=== PATIENT | female | born 1970 | race Caucasian/White ===

== ENCOUNTER 2017-03-21 14:22 | Inpatient (IN) ==
[2017-03-21] MEDS ORDERED: ALBUTEROL 2.5 MG/3 ML NEB RESP TX PRN (15:50)
[2017-03-21] MEDS ORDERED: ALPRAZolam 0.5 MG TABLET PO PRN (18:43)
[2017-03-21] MEDS ORDERED: ACETAMINOPHEN 325 MG TABLET PO PRN (19:29)
[2017-03-21 19:56] LABS: Basophils % 0.3 % (0.0-0.8); Eosinophils # 0.4 10*3/uL (0.0-0.87); Hemoglobin 11.7 GM/DL (12.0-16.0); Immature Granulocytes % 0.6 %; Immature Granulocytes Absolute 0.07 #; Lymphocytes # 2.4 10*3/uL (1.4-4.0); Lymphocytes % 19.3 % (21.3-54.2); Mean Corpuscular HGB Conc 34.4 GM/DL (32-36); Mean Corpuscular Hemoglobin 31 PG (27-34); Mean Corpuscular Volume 88.5 FL (87-102); Mean Platelet Volume 9.4 FL (9.6-12.0); Monocytes # 0.9 10*3/uL (0.11-0.8); Monocytes % 7.6 % (1.7-12.7); Neutrophils # 8.5 10*3/uL (1.4-7.4); Neutrophils % 69.2 % (38.7-73.9); Platelet Count 252 T/CUMM (130-400); Red Blood Count 3.84 MC/CUMM (3.8-5.5); Red Cell Distribution Width 14.2 % (9.3-17.3); White Blood Count 12.3 T/CUMM (4-12)
[2017-03-21] MEDS ORDERED: AZITHROMYCIN INJ 500 MG in SODIUM CHLORIDE 0.9% 250 ML IV SCH (20:00)
[2017-03-21] MEDS ORDERED: AZTREONAM 2,000 MG in SYRINGE 1 EACH IV SCH (20:00)
[2017-03-21 20:16] LABS: Albumin 3.7 G/DL (3.4-5.0); Bilirubin,Total 0.5 MG/DL (0.2-1.0); Calcium 8.8 MG/DL (8.5-10.1); Osmolality,Calculated 279.5 MOS/KG (273-304); Potassium 4.5 MMOL/L (3.5-5.1); Total Protein 6.8 G/DL (6.4-8.3)
[2017-03-21] MEDS: guaiFENesin/DM ER 600-30 MG TABLET PO SCH (21:25)
[2017-03-21] MEDS: MEROPENEM 1,000 MG in SYRINGE 1 EACH IV SCH (23:01)
[2017-03-21] MEDS: ALBUTEROL/IPRATROPIUM 3 ML NEB RESP TX SCH (23:02)
[2017-03-22 05:50] LABS: Basophils % 0.4 % (0.0-0.8); Eosinophils # 0.5 10*3/uL (0.0-0.87); Eosinophils % 5.3 % (0.00-10.9); Hematocrit 31.1 VOL% (35.7-47.0); Hemoglobin 10.5 GM/DL (12.0-16.0); Immature Granulocytes % 0.5 %; Immature Granulocytes Absolute 0.05 #; Lymphocytes # 2.4 10*3/uL (1.4-4.0); Lymphocytes % 24.9 % (21.3-54.2); Mean Corpuscular HGB Conc 33.8 GM/DL (32-36); Mean Corpuscular Hemoglobin 30 PG (27-34); Mean Corpuscular Volume 89.4 FL (87-102); Mean Platelet Volume 9.6 FL (9.6-12.0); Monocytes # 0.9 10*3/uL (0.11-0.8); Monocytes % 9.7 % (1.7-12.7); Neutrophils # 5.7 10*3/uL (1.4-7.4); Neutrophils % 59.2 % (38.7-73.9); Platelet Count 212 T/CUMM (130-400); Red Blood Count 3.48 MC/CUMM (3.8-5.5); Red Cell Distribution Width 14.3 % (9.3-17.3); White Blood Count 9.6 T/CUMM (4-12)
[2017-03-22 06:18] LABS: Blood Urea Nitrogen 19 MG/DL (7-18); Calcium 8.3 MG/DL (8.5-10.1); Glucose 79 MG/DL (74-106); Magnesium 2.1 MG/DL (1.8-2.4); Osmolality,Calculated 279.4 MOS/KG (273-304); Potassium 4.2 MMOL/L (3.5-5.1); Sodium 140 MMOL/L (136-145); Troponin I Only < 0.015 NG/ML (0.00-0.045)
[2017-03-22] MEDS ORDERED: PANTOPRAZOLE 40 MG TABLET PO SCH (09:00)
[2017-03-22] MEDS: guaiFENesin/DM ER 600-30 MG TABLET PO SCH (10:10)
[2017-03-22] MEDS: MEROPENEM 1,000 MG in SYRINGE 1 EACH IV SCH (11:18)
[2017-03-22] MEDS: ALBUTEROL/IPRATROPIUM 3 ML NEB RESP TX SCH ×2 (13:54→13:58)
[2017-03-22 17:36] VITALS: BP 107/67
[2017-03-23 14:37] LABS: Procalcitonin, S 0.28 ng/mL (<=0.15)
[2017-03-23] MEDS ORDERED: AZITHROMYCIN 250 MG TABLET PO SCH (21:00)
== END 2017-03-22 16:55 | disposition home or self-care (01) | DRG 194 ==
LOC: N.2E 18:27
PROVIDERS: ADMIT Internal Medicine; ATTEND Internal Medicine

== ENCOUNTER 2018-03-19 16:49 | Inpatient (IN) ==
[2018-03-19] MEDS ORDERED: ZALEPLON 5 MG CAPSULE PO PRN (18:20)
[2018-03-19] MEDS ORDERED: ONDANSETRON 4 MG/2 ML VIAL IV PRN (18:20)
[2018-03-19] MEDS ORDERED: ALBUTEROL 2.5 MG/3 ML NEB RESP TX PRN (18:20)
[2018-03-19] MEDS ORDERED: DEXTROSE 50% 25 GM/50 ML VIAL IV PRN (18:49)
[2018-03-19] MEDS ORDERED: GLUCAGON 1 MG VIAL IM PRN (18:49)
[2018-03-19] MEDS ORDERED: clonazePAM 0.5 MG TABLET PO PRN (18:55)
[2018-03-19] MEDS ORDERED: tiZANidine 4 MG TABLET PO PRN (18:55)
[2018-03-19] MEDS: ALBUTEROL/IPRATROPIUM 3 ML NEB RESP TX SCH (19:15)
[2018-03-19 20:38] LABS: Basophils # 0.1 10*3/uL (0.0-0.2); Basophils % 0.4 % (0.0-0.8); Eosinophils # 0.6 10*3/uL (0.0-0.87); Eosinophils % 5.2 % (0.00-10.9); Hematocrit 35.1 VOL% (35.7-47.0); Hemoglobin 11.5 GM/DL (12.0-16.0); Immature Granulocytes % 0.5 %; Immature Granulocytes Absolute 0.06 #; Lymphocytes # 2.4 10*3/uL (1.4-4.0); Lymphocytes % 19.5 % (21.3-54.2); Mean Corpuscular HGB Conc 32.8 GM/DL (32-36); Mean Corpuscular Hemoglobin 31 PG (27-34); Mean Corpuscular Volume 93.9 FL (87-102); Mean Platelet Volume 10.1 FL (9.6-12.0); Monocytes # 1.3 10*3/uL (0.11-0.8); Monocytes % 10.4 % (1.7-12.7); Neutrophils # 7.9 10*3/uL (1.4-7.4); Platelet Count 204 T/CUMM (130-400); Red Blood Count 3.74 MC/CUMM (3.8-5.5); Red Cell Distribution Width 12.6 % (9.3-17.3); White Blood Count 12.4 T/CUMM (4-12)
[2018-03-19 20:57] LABS: Albumin 3.1 G/DL (3.4-5.0); Bilirubin,Total 0.6 MG/DL (0.2-1.0); Calcium 8.9 MG/DL (8.5-10.1); Osmolality,Calculated 278.8 MOS/KG (273-304); Potassium 4.1 MMOL/L (3.5-5.1); Total Protein 6.8 G/DL (6.4-8.3)
[2018-03-19] MEDS ORDERED: amLODIPine 5 MG TABLET PO SCH (21:00)
[2018-03-19] MEDS ORDERED: VANCOMYCIN INJ 1,500 MG in SODIUM CHLORIDE 0.9% 250 ML IV SCH (21:30)
[2018-03-19] MEDS: guaiFENesin/DM ER 600-30 MG TABLET PO SCH (22:19)
[2018-03-19] MEDS: levETIRAcetam 500 MG TABLET PO SCH (22:19)
[2018-03-19] MEDS: BENZONATATE 100 MG CAPSULE PO SCH (22:19)
[2018-03-19] MEDS: DULoxetine 30 MG CAPSULE PO SCH (22:19)
[2018-03-19] MEDS: DIVALPROEX 500 MG TABLET PO SCH (22:19)
[2018-03-19] MEDS: AMITRIPTYLINE 50 MG TABLET PO SCH (22:20)
[2018-03-19] MEDS: SODIUM CHLORIDE 0.9% 1,000 ML IV SCH (22:20)
[2018-03-19] MEDS: CEFEPIME 2,000 MG in SYRINGE 1 EACH IV SCH (22:20)
[2018-03-19] MEDS: INSULIN LISPRO 100 UNIT/ML SUBCUT SCH (22:21)
[2018-03-19] MEDS: ENOXAPARIN 40 MG/0.4 ML SYRINGE SUBCUT SCH (22:30)
[2018-03-19] MEDS: VANCOMYCIN INJ 1,500 MG in SODIUM CHLORIDE 0.9% 500 ML IV SCH (22:30)
[2018-03-19] MEDS: ACETAMINOPHEN 325 MG TABLET PO PRN (23:12)
[2018-03-20 00:10] LABS: Apearance,Urine Slightly Hazy (Clear); Bacteria,Urine Occasional /HPF (Few); Bilirubin,Urine Negative (Negative); Blood, Urine Negative (Negative); Glucose,Urine (UA) Negative (Negative); Hyaline Casts,Urine 9 /LPF (0-3); Ketones,Urine Negative (Negative); Mucus,Urine Occasional /LPF (Occasional); Nitrite,Urine Negative (Negative); Protein,Urine Negative; RBC,Urine 1 /HPF (0-4); Squamous Epithelial Cell,Urine Occasional /HPF (0-10); Urine Color Amber (Yellow); Urine Specific Gravity 1.026 (1.001-1.035); WBC,Urine 2 /HPF (0-6)
[2018-03-20] MEDS: ALBUTEROL/IPRATROPIUM 3 ML NEB RESP TX SCH ×4 (00:10→19:27)
[2018-03-20] MEDS: CEFEPIME 2,000 MG in SYRINGE 1 EACH IV SCH ×3 (03:22→21:33)
[2018-03-20] MEDS: ACETAMINOPHEN 325 MG TABLET PO PRN (04:56)
[2018-03-20 05:59] LABS: Basophils # 0.1 10*3/uL (0.0-0.2); Basophils % 0.5 % (0.0-0.8); Eosinophils # 0.7 10*3/uL (0.0-0.87); Eosinophils % 7.2 % (0.00-10.9); Hematocrit 34.2 VOL% (35.7-47.0); Hemoglobin 11.1 GM/DL (12.0-16.0); Immature Granulocytes % 0.7 %; Immature Granulocytes Absolute 0.07 #; Lymphocytes # 2.4 10*3/uL (1.4-4.0); Lymphocytes % 24.8 % (21.3-54.2); Mean Corpuscular HGB Conc 32.5 GM/DL (32-36); Mean Corpuscular Hemoglobin 31 PG (27-34); Mean Corpuscular Volume 96.3 FL (87-102); Neutrophils # 5.6 10*3/uL (1.4-7.4); Neutrophils % 56.8 % (38.7-73.9); Platelet Count 182 T/CUMM (130-400); Red Blood Count 3.55 MC/CUMM (3.8-5.5); Red Cell Distribution Width 12.6 % (9.3-17.3); White Blood Count 9.8 T/CUMM (4-12)
[2018-03-20 06:08] LABS: Calcium 8.8 MG/DL (8.5-10.1); Osmolality,Calculated 277.7 MOS/KG (273-304); Potassium 4.2 MMOL/L (3.5-5.1)
[2018-03-20] MEDS: DORNASE ALFA 2.5 MG/2.5 ML VIAL RESP TX SCH ×2 (07:32→19:35)
[2018-03-20] MEDS: VANCOMYCIN INJ 1,500 MG in SODIUM CHLORIDE 0.9% 500 ML IV SCH ×2 (08:33→21:40)
[2018-03-20] MEDS: FOLIC ACID 1 MG TABLET PO SCH (08:34)
[2018-03-20] MEDS: MELOXICAM 7.5 MG TABLET PO SCH (08:34)
[2018-03-20] MEDS: BENZONATATE 100 MG CAPSULE PO SCH ×3 (08:35→21:34)
[2018-03-20] MEDS: DIVALPROEX 500 MG TABLET PO SCH ×2 (08:35→21:34)
[2018-03-20] MEDS: predniSONE 20 MG TABLET PO SCH (08:35)
[2018-03-20] MEDS: guaiFENesin/DM ER 600-30 MG TABLET PO SCH ×2 (08:35→21:34)
[2018-03-20] MEDS: levETIRAcetam 500 MG TABLET PO SCH ×2 (08:35→21:34)
[2018-03-20] MEDS: DULoxetine 30 MG CAPSULE PO SCH ×2 (08:36→21:33)
[2018-03-20] MEDS: INSULIN LISPRO 100 UNIT/ML SUBCUT SCH ×4 (08:36→21:35)
[2018-03-20] MEDS: SODIUM CHLORIDE 0.9% 1,000 ML IV SCH ×2 (08:37→17:04)
[2018-03-20] MEDS ORDERED: PANTOPRAZOLE 40 MG TABLET PO SCH (09:00)
[2018-03-20] MEDS: amLODIPine 10 MG TABLET PO SCH (11:26)
[2018-03-20] MEDS: CHOLECALCIFEROL 1,000 UNIT TABLET PO SCH (11:26)
[2018-03-20] MEDS: MONTELUKAST 10 MG TABLET PO SCH (21:34)
[2018-03-20] MEDS: PANTOPRAZOLE 40 MG TABLET PO SCH (21:34)
[2018-03-20] MEDS: AMITRIPTYLINE 50 MG TABLET PO SCH (21:34)
[2018-03-20] MEDS: ENOXAPARIN 40 MG/0.4 ML SYRINGE SUBCUT SCH (21:35)
[2018-03-21] MEDS: ALBUTEROL/IPRATROPIUM 3 ML NEB RESP TX SCH ×4 (00:39→18:57)
[2018-03-21] MEDS: SODIUM CHLORIDE 0.9% 1,000 ML IV SCH ×2 (03:17→15:11)
[2018-03-21] MEDS: CEFEPIME 2,000 MG in SYRINGE 1 EACH IV SCH ×3 (07:09→20:39)
[2018-03-21] MEDS: DORNASE ALFA 2.5 MG/2.5 ML VIAL RESP TX SCH ×2 (07:21→19:10)
[2018-03-21] MEDS: INSULIN LISPRO 100 UNIT/ML SUBCUT SCH ×4 (08:15→20:39)
[2018-03-21] MEDS: guaiFENesin/DM ER 600-30 MG TABLET PO SCH ×2 (08:46→20:38)
[2018-03-21] MEDS: MELOXICAM 7.5 MG TABLET PO SCH (08:46)
[2018-03-21] MEDS: DULoxetine 30 MG CAPSULE PO SCH ×2 (08:46→20:38)
[2018-03-21] MEDS: levETIRAcetam 500 MG TABLET PO SCH ×2 (08:46→20:38)
[2018-03-21] MEDS: amLODIPine 10 MG TABLET PO SCH (08:46)
[2018-03-21] MEDS: DIVALPROEX 500 MG TABLET PO SCH ×2 (08:46→20:38)
[2018-03-21] MEDS: MONTELUKAST 10 MG TABLET PO SCH ×2 (08:46→20:38)
[2018-03-21] MEDS: BENZONATATE 100 MG CAPSULE PO SCH ×3 (08:46→20:38)
[2018-03-21] MEDS: FOLIC ACID 1 MG TABLET PO SCH (08:47)
[2018-03-21] MEDS: CHOLECALCIFEROL 1,000 UNIT TABLET PO SCH (08:47)
[2018-03-21] MEDS: PANTOPRAZOLE 40 MG TABLET PO SCH ×2 (08:47→20:38)
[2018-03-21] MEDS: predniSONE 20 MG TABLET PO SCH (08:47)
[2018-03-21] MEDS: VANCOMYCIN INJ 1,500 MG in SODIUM CHLORIDE 0.9% 500 ML IV SCH ×2 (10:11→20:39)
[2018-03-21] MEDS: LEVOFLOXACIN INJ 750 MG in PREMIX 1 EACH IV SCH (12:59)
[2018-03-21] MEDS: LACTOBACILLUS ACIDOPHILUS/BULGARICUS CAPLET PO SCH (15:11)
[2018-03-21] MEDS: NYSTATIN 500,000 UNIT/5 ML UDCUP SWISH/SWAL SCH ×3 (15:11→20:40)
[2018-03-21] MEDS: AMITRIPTYLINE 50 MG TABLET PO SCH (20:38)
[2018-03-21] MEDS: ENOXAPARIN 40 MG/0.4 ML SYRINGE SUBCUT SCH (20:39)
[2018-03-22] MEDS: ALBUTEROL/IPRATROPIUM 3 ML NEB RESP TX SCH ×4 (00:56→19:08)
[2018-03-22] MEDS: SODIUM CHLORIDE 0.9% 1,000 ML IV SCH ×2 (01:43→09:44)
[2018-03-22] MEDS: CEFEPIME 2,000 MG in SYRINGE 1 EACH IV SCH ×3 (04:34→21:30)
[2018-03-22 07:14] LABS: Basophils # 0.1 10*3/uL (0.0-0.2); Basophils % 0.7 % (0.0-0.8); Eosinophils # 0.3 10*3/uL (0.0-0.87); Eosinophils % 2.5 % (0.00-10.9); Hematocrit 33.5 VOL% (35.7-47.0); Hemoglobin 10.8 GM/DL (12.0-16.0); Immature Granulocytes % 1.6 %; Immature Granulocytes Absolute 0.16 #; Lymphocytes # 2.9 10*3/uL (1.4-4.0); Lymphocytes % 29.1 % (21.3-54.2); Mean Corpuscular HGB Conc 32.2 GM/DL (32-36); Mean Corpuscular Hemoglobin 30 PG (27-34); Mean Corpuscular Volume 93.8 FL (87-102); Mean Platelet Volume 9.8 FL (9.6-12.0); Monocytes # 0.8 10*3/uL (0.11-0.8); Monocytes % 7.5 % (1.7-12.7); Neutrophils # 5.9 10*3/uL (1.4-7.4); Neutrophils % 58.6 % (38.7-73.9); Platelet Count 168 T/CUMM (130-400); Red Blood Count 3.57 MC/CUMM (3.8-5.5); Red Cell Distribution Width 12.4 % (9.3-17.3); White Blood Count 10.1 T/CUMM (4-12)
[2018-03-22] MEDS: DORNASE ALFA 2.5 MG/2.5 ML VIAL RESP TX SCH ×2 (07:25→19:08)
[2018-03-22] MEDS: INSULIN LISPRO 100 UNIT/ML SUBCUT SCH ×4 (07:34→21:29)
[2018-03-22 07:37] LABS: Calcium 8.3 MG/DL (8.5-10.1); Potassium 3.8 MMOL/L (3.5-5.1)
[2018-03-22] MEDS: MELOXICAM 7.5 MG TABLET PO SCH (08:19)
[2018-03-22] MEDS: PANTOPRAZOLE 40 MG TABLET PO SCH ×2 (08:19→21:29)
[2018-03-22] MEDS: DIVALPROEX 500 MG TABLET PO SCH ×2 (08:19→21:29)
[2018-03-22] MEDS: CHOLECALCIFEROL 1,000 UNIT TABLET PO SCH (08:19)
[2018-03-22] MEDS: DULoxetine 30 MG CAPSULE PO SCH ×2 (08:20→21:29)
[2018-03-22] MEDS: amLODIPine 10 MG TABLET PO SCH (08:20)
[2018-03-22] MEDS: LACTOBACILLUS ACIDOPHILUS/BULGARICUS CAPLET PO SCH (08:20)
[2018-03-22] MEDS: levETIRAcetam 500 MG TABLET PO SCH ×2 (08:20→21:29)
[2018-03-22] MEDS: BENZONATATE 100 MG CAPSULE PO SCH ×3 (08:20→21:29)
[2018-03-22] MEDS: guaiFENesin/DM ER 600-30 MG TABLET PO SCH ×2 (08:20→21:29)
[2018-03-22] MEDS: MONTELUKAST 10 MG TABLET PO SCH ×2 (08:20→21:30)
[2018-03-22] MEDS: FOLIC ACID 1 MG TABLET PO SCH (08:20)
[2018-03-22] MEDS: predniSONE 20 MG TABLET PO SCH (08:20)
[2018-03-22] MEDS: NYSTATIN 500,000 UNIT/5 ML UDCUP SWISH/SWAL SCH ×4 (08:20→21:30)
[2018-03-22] MEDS ORDERED: MAGNESIUM SULF RIDER 2 GM in PREMIX 1 EACH IV ONE (08:21)
[2018-03-22] MEDS: VANCOMYCIN INJ 1,500 MG in SODIUM CHLORIDE 0.9% 500 ML IV SCH ×2 (09:44→21:30)
[2018-03-22] MEDS ORDERED: TUBERCULIN SKIN TEST 0.1 ML SYRINGE INTRADERM ONE (12:35)
[2018-03-22] MEDS: LEVOFLOXACIN INJ 750 MG in PREMIX 1 EACH IV SCH (13:09)
[2018-03-22] MEDS: AMITRIPTYLINE 50 MG TABLET PO SCH (21:29)
[2018-03-22] MEDS: ENOXAPARIN 40 MG/0.4 ML SYRINGE SUBCUT SCH (21:29)
[2018-03-23] MEDS: ALBUTEROL/IPRATROPIUM 3 ML NEB RESP TX SCH ×4 (00:37→19:43)
[2018-03-23] MEDS: CEFEPIME 2,000 MG in SYRINGE 1 EACH IV SCH ×4 (04:38→22:54)
[2018-03-23] MEDS: INSULIN LISPRO 100 UNIT/ML SUBCUT SCH ×4 (08:06→23:00)
[2018-03-23] MEDS: DORNASE ALFA 2.5 MG/2.5 ML VIAL RESP TX SCH ×2 (08:21→19:43)
[2018-03-23] MEDS: DULoxetine 30 MG CAPSULE PO SCH ×2 (09:44→21:49)
[2018-03-23] MEDS: MELOXICAM 7.5 MG TABLET PO SCH (09:45)
[2018-03-23] MEDS: PANTOPRAZOLE 40 MG TABLET PO SCH ×2 (09:45→21:50)
[2018-03-23] MEDS: DIVALPROEX 500 MG TABLET PO SCH ×2 (09:45→21:50)
[2018-03-23] MEDS: LACTOBACILLUS ACIDOPHILUS/BULGARICUS CAPLET PO SCH (09:45)
[2018-03-23] MEDS: guaiFENesin/DM ER 600-30 MG TABLET PO SCH ×2 (09:45→21:49)
[2018-03-23] MEDS: levETIRAcetam 500 MG TABLET PO SCH ×2 (09:46→21:49)
[2018-03-23] MEDS: MONTELUKAST 10 MG TABLET PO SCH ×2 (09:46→23:00)
[2018-03-23] MEDS: FOLIC ACID 1 MG TABLET PO SCH (09:46)
[2018-03-23] MEDS: amLODIPine 10 MG TABLET PO SCH (09:46)
[2018-03-23] MEDS: predniSONE 20 MG TABLET PO SCH (09:46)
[2018-03-23] MEDS: BENZONATATE 100 MG CAPSULE PO SCH ×3 (09:46→21:50)
[2018-03-23] MEDS: CHOLECALCIFEROL 1,000 UNIT TABLET PO SCH (09:46)
[2018-03-23] MEDS: NYSTATIN 500,000 UNIT/5 ML UDCUP SWISH/SWAL SCH ×4 (09:46→21:50)
[2018-03-23] MEDS: VANCOMYCIN INJ 1,500 MG in SODIUM CHLORIDE 0.9% 500 ML IV SCH ×3 (09:51→22:59)
[2018-03-23] MEDS: LEVOFLOXACIN INJ 750 MG in PREMIX 1 EACH IV SCH (13:56)
[2018-03-23] MEDS: AMITRIPTYLINE 50 MG TABLET PO SCH (21:50)
[2018-03-23] MEDS: ENOXAPARIN 40 MG/0.4 ML SYRINGE SUBCUT SCH (21:50)
[2018-03-24] MEDS: ALBUTEROL/IPRATROPIUM 3 ML NEB RESP TX SCH ×4 (01:10→19:08)
[2018-03-24] MEDS: CEFEPIME 2,000 MG in SYRINGE 1 EACH IV SCH ×3 (04:39→21:58)
[2018-03-24] MEDS: DORNASE ALFA 2.5 MG/2.5 ML VIAL RESP TX SCH ×2 (07:12→19:08)
[2018-03-24 07:49] LABS: Hematocrit 34.2 VOL% (35.7-47.0); Hemoglobin 11.4 GM/DL (12.0-16.0); Mean Corpuscular HGB Conc 33.3 GM/DL (32-36); Mean Corpuscular Hemoglobin 31 PG (27-34); Mean Corpuscular Volume 92.9 FL (87-102); Red Blood Count 3.68 MC/CUMM (3.8-5.5); Red Cell Distribution Width 12.4 % (9.3-17.3); White Blood Count 13.5 T/CUMM (4-12)
[2018-03-24 07:50] LABS: Basophils # 0.1 10*3/uL (0.0-0.2); Basophils % 0.8 % (0.0-0.8); Eosinophils # 0.5 10*3/uL (0.0-0.87); Eosinophils % 3.6 % (0.00-10.9); Immature Granulocytes % 4.6 %; Immature Granulocytes Absolute 0.62 #; Lymphocytes % 29.8 % (21.3-54.2); Mean Platelet Volume 9.6 FL (9.6-12.0); Monocytes # 0.9 10*3/uL (0.11-0.8); Neutrophils # 7.3 10*3/uL (1.4-7.4); Neutrophils % 54.2 % (38.7-73.9); Platelet Count 179 T/CUMM (130-400)
[2018-03-24] MEDS: INSULIN LISPRO 100 UNIT/ML SUBCUT SCH ×4 (07:54→21:58)
[2018-03-24 08:16] LABS: Calcium 8.6 MG/DL (8.5-10.1); Osmolality,Calculated 279.4 MOS/KG (273-304); Potassium 4.2 MMOL/L (3.5-5.1)
[2018-03-24 08:20] LABS: Anisocytosis 1+; Band Neutrophils 1 % (0-10); Eosinophils 2 % (0-10); Lymphocytes 40 % (20-55); Nucleated Red Blood Cells 1 (0-5); Platelet Estimate Normal; Segmented Neutrophils 56 % (50-85); Total Cells Counted 100
[2018-03-24] MEDS: NYSTATIN 500,000 UNIT/5 ML UDCUP SWISH/SWAL SCH ×4 (09:41→21:58)
[2018-03-24] MEDS: DULoxetine 30 MG CAPSULE PO SCH ×2 (09:41→21:57)
[2018-03-24] MEDS: guaiFENesin/DM ER 600-30 MG TABLET PO SCH ×2 (09:41→21:57)
[2018-03-24] MEDS: FOLIC ACID 1 MG TABLET PO SCH (09:42)
[2018-03-24] MEDS: MELOXICAM 7.5 MG TABLET PO SCH (09:42)
[2018-03-24] MEDS: amLODIPine 10 MG TABLET PO SCH (09:43)
[2018-03-24] MEDS: predniSONE 20 MG TABLET PO SCH (09:43)
[2018-03-24] MEDS: CHOLECALCIFEROL 1,000 UNIT TABLET PO SCH (09:43)
[2018-03-24] MEDS: LACTOBACILLUS ACIDOPHILUS/BULGARICUS CAPLET PO SCH (09:43)
[2018-03-24] MEDS: levETIRAcetam 500 MG TABLET PO SCH ×2 (09:43→21:58)
[2018-03-24] MEDS: DIVALPROEX 500 MG TABLET PO SCH ×2 (09:44→21:57)
[2018-03-24] MEDS: MONTELUKAST 10 MG TABLET PO SCH ×2 (09:44→21:59)
[2018-03-24] MEDS: PANTOPRAZOLE 40 MG TABLET PO SCH ×2 (09:44→21:58)
[2018-03-24] MEDS: BENZONATATE 100 MG CAPSULE PO SCH ×3 (09:52→21:58)
[2018-03-24] MEDS: VANCOMYCIN INJ 1,500 MG in SODIUM CHLORIDE 0.9% 500 ML IV SCH (09:52)
[2018-03-24] MEDS: LEVOFLOXACIN INJ 750 MG in PREMIX 1 EACH IV SCH (12:34)
[2018-03-24] MEDS: AMITRIPTYLINE 50 MG TABLET PO SCH (21:57)
[2018-03-24] MEDS: ENOXAPARIN 40 MG/0.4 ML SYRINGE SUBCUT SCH (21:58)
[2018-03-25] MEDS: ALBUTEROL/IPRATROPIUM 3 ML NEB RESP TX SCH ×4 (00:10→19:08)
[2018-03-25] MEDS: VANCOMYCIN INJ 1,500 MG in SODIUM CHLORIDE 0.9% 500 ML IV SCH ×3 (00:48→23:05)
[2018-03-25] MEDS: CEFEPIME 2,000 MG in SYRINGE 1 EACH IV SCH ×4 (05:11→20:43)
[2018-03-25] MEDS: DORNASE ALFA 2.5 MG/2.5 ML VIAL RESP TX SCH ×2 (07:35→19:15)
[2018-03-25] MEDS: FOLIC ACID 1 MG TABLET PO SCH (08:19)
[2018-03-25] MEDS: NYSTATIN 500,000 UNIT/5 ML UDCUP SWISH/SWAL SCH ×4 (08:19→20:44)
[2018-03-25] MEDS: INSULIN LISPRO 100 UNIT/ML SUBCUT SCH ×4 (08:19→20:51)
[2018-03-25] MEDS: BENZONATATE 100 MG CAPSULE PO SCH ×3 (08:19→20:44)
[2018-03-25] MEDS: MELOXICAM 7.5 MG TABLET PO SCH (08:19)
[2018-03-25] MEDS: levETIRAcetam 500 MG TABLET PO SCH ×2 (08:19→20:44)
[2018-03-25] MEDS: CHOLECALCIFEROL 1,000 UNIT TABLET PO SCH (08:19)
[2018-03-25] MEDS: guaiFENesin/DM ER 600-30 MG TABLET PO SCH ×2 (08:19→20:44)
[2018-03-25] MEDS: PANTOPRAZOLE 40 MG TABLET PO SCH ×2 (08:20→20:44)
[2018-03-25] MEDS: predniSONE 20 MG TABLET PO SCH (08:20)
[2018-03-25] MEDS: LACTOBACILLUS ACIDOPHILUS/BULGARICUS CAPLET PO SCH (08:20)
[2018-03-25] MEDS: DULoxetine 30 MG CAPSULE PO SCH ×2 (08:20→20:44)
[2018-03-25] MEDS: DIVALPROEX 500 MG TABLET PO SCH ×2 (08:20→20:44)
[2018-03-25] MEDS: MONTELUKAST 10 MG TABLET PO SCH ×2 (08:20→20:45)
[2018-03-25] MEDS: amLODIPine 10 MG TABLET PO SCH (08:20)
[2018-03-25] MEDS: LEVOFLOXACIN INJ 750 MG in PREMIX 1 EACH IV SCH (12:19)
[2018-03-25] MEDS: AMITRIPTYLINE 50 MG TABLET PO SCH (20:44)
[2018-03-25] MEDS: ENOXAPARIN 40 MG/0.4 ML SYRINGE SUBCUT SCH (20:45)
[2018-03-26] MEDS: ALBUTEROL/IPRATROPIUM 3 ML NEB RESP TX SCH ×2 (00:04→06:58)
[2018-03-26] MEDS: CEFEPIME 2,000 MG in SYRINGE 1 EACH IV SCH ×2 (04:45→14:07)
[2018-03-26 05:14] LABS: Basophils # 0.1 10*3/uL (0.0-0.2); Eosinophils # 0.5 10*3/uL (0.0-0.87); Eosinophils % 3.1 % (0.00-10.9); Hematocrit 34.8 VOL% (35.7-47.0); Hemoglobin 11.4 GM/DL (12.0-16.0); Immature Granulocytes % 6.4 %; Immature Granulocytes Absolute 0.92 #; Lymphocytes # 3.8 10*3/uL (1.4-4.0); Lymphocytes % 26.5 % (21.3-54.2); Mean Corpuscular HGB Conc 32.8 GM/DL (32-36); Mean Corpuscular Hemoglobin 31 PG (27-34); Mean Corpuscular Volume 93.5 FL (87-102); Mean Platelet Volume 9.2 FL (9.6-12.0); Monocytes % 6.9 % (1.7-12.7); Neutrophils # 8.1 10*3/uL (1.4-7.4); Neutrophils % 56.1 % (38.7-73.9); Platelet Count 194 T/CUMM (130-400); Red Blood Count 3.72 MC/CUMM (3.8-5.5); Red Cell Distribution Width 12.8 % (9.3-17.3); White Blood Count 14.4 T/CUMM (4-12)
[2018-03-26 05:44] LABS: Eosinophils 4 % (0-10); Hypochromasia 2+; Lymphocytes 23 % (20-55); Platelet Estimate Normal; Segmented Neutrophils 66 % (50-85); Total Cells Counted 100
[2018-03-26] MEDS: DORNASE ALFA 2.5 MG/2.5 ML VIAL RESP TX SCH (06:58)
[2018-03-26] MEDS: INSULIN LISPRO 100 UNIT/ML SUBCUT SCH ×2 (08:05→11:51)
[2018-03-26] MEDS: levETIRAcetam 500 MG TABLET PO SCH (08:23)
[2018-03-26] MEDS: DIVALPROEX 500 MG TABLET PO SCH (08:23)
[2018-03-26] MEDS ORDERED: diphenhydrAMINE 50 MG/1 ML VIAL IM ONE (09:36)
[2018-03-26] MEDS ORDERED: LIDOCAINE 2% VISCOUS 100 ML BOTTLE SWISH/SPIT ONE (09:36)
[2018-03-26] MEDS ORDERED: LIDOCAINE 2% 20 ML VIAL RESP TX ONE (09:36)
[2018-03-26] MEDS ORDERED: LIDOCAINE 1% 20 ML VIAL MISC INJ ONE (09:36)
[2018-03-26] MEDS ORDERED: MEPERIDINE 50 MG/1 ML VIAL IM ONE (09:36)
[2018-03-26] MEDS ORDERED: BENZONATATE 100 MG CAPSULE PO ONE (09:37)
[2018-03-26] MEDS ORDERED: MIDAZOLAM 2 MG/2 ML VIAL ONE (09:54)
[2018-03-26 10:20] LABS: INR 0.9; PT Patient Result 9.9 SECS; Partial Thromboplastin Time 24.5 SECS (0-40)
[2018-03-26] MEDS ORDERED: MIDAZOLAM 2 MG/2 ML VIAL IV ONE (10:23)
[2018-03-26 10:52] VITALS: BP 162/113
[2018-03-26] MEDS: VANCOMYCIN INJ 1,500 MG in SODIUM CHLORIDE 0.9% 500 ML IV SCH (11:54)
[2018-03-26] MEDS: BENZONATATE 100 MG CAPSULE PO SCH (13:04)
[2018-03-26] MEDS: FOLIC ACID 1 MG TABLET PO SCH (13:07)
[2018-03-26] MEDS: LACTOBACILLUS ACIDOPHILUS/BULGARICUS CAPLET PO SCH (13:07)
[2018-03-26] MEDS: MELOXICAM 7.5 MG TABLET PO SCH (13:07)
[2018-03-26] MEDS: PANTOPRAZOLE 40 MG TABLET PO SCH (13:07)
[2018-03-26] MEDS: DULoxetine 30 MG CAPSULE PO SCH (13:08)
[2018-03-26] MEDS: NYSTATIN 500,000 UNIT/5 ML UDCUP SWISH/SWAL SCH ×2 (13:08→13:09)
[2018-03-26] MEDS: MONTELUKAST 10 MG TABLET PO SCH (13:08)
[2018-03-26] MEDS: CHOLECALCIFEROL 1,000 UNIT TABLET PO SCH (13:08)
[2018-03-26] MEDS: predniSONE 20 MG TABLET PO SCH (13:08)
[2018-03-26] MEDS: guaiFENesin/DM ER 600-30 MG TABLET PO SCH (13:08)
[2018-03-26] MEDS: amLODIPine 10 MG TABLET PO SCH (13:14)
[2018-03-26] MEDS: LEVOFLOXACIN INJ 750 MG in PREMIX 1 EACH IV SCH (14:04)
== END 2018-03-26 15:37 | disposition home or self-care (01) | DRG 167 ==
LOC: N.2E 17:17 → SUATTDRO 17:17
PROVIDERS: ADMIT Internal Medicine; ATTEND Internal Medicine

== ENCOUNTER 2021-07-12 10:03 | Inpatient (IN) ==
[2021-07-12] MEDS ORDERED: methylPREDNISolone SOD SUC 125 MG/2 ML VIAL IV STA (10:25)
[2021-07-12] MEDS ORDERED: ALBUTEROL 2.5 MG/3 ML NEB RESP TX STA (10:25)
[2021-07-12] MEDS ORDERED: SODIUM CHLORIDE 0.9% 1,000 ML IV STA (10:25)
[2021-07-12 10:57] LABS: Basophils % 0.2 % (0.0-0.8); Eosinophils % 0.2 % (0.00-10.9); Hematocrit 47.4 VOL% (35.7-47.0); Hemoglobin 15.5 GM/DL (12.0-16.0); Immature Granulocytes Absolute 0.18 #; Lymphocytes # 2.2 10*3/uL (1.4-4.0); Lymphocytes % 12.2 % (21.3-54.2); Mean Corpuscular HGB Conc 32.7 GM/DL (32-36); Mean Corpuscular Volume 100.2 FL (87-102); Mean Platelet Volume 9.2 FL (9.6-12.0); Monocytes # 1.2 10*3/uL (0.11-0.8); Monocytes % 6.4 % (1.7-12.7); Platelet Count 262 T/CUMM (130-400); Red Blood Count 4.73 MC/CUMM (3.8-5.5); White Blood Count 18.1 T/CUMM (4-12)
[2021-07-12] MEDS ORDERED: VANCOMYCIN INJ 1,250 MG in SODIUM CHLORIDE 0.9% 250 ML IV STA (11:02)
[2021-07-12] MEDS ORDERED: LEVOFLOXACIN INJ 750 MG/150 ML PREMIX IV STA (11:02)
[2021-07-12] MEDS ORDERED: oxyCODONE/ACETAMINOPHEN 5-325 MG TABLET ONE (11:13)
[2021-07-12] MEDS ORDERED: oxyCODONE/ACETAMINOPHEN 5-325 MG TABLET PO STA (11:13)
[2021-07-12 11:14] LABS: INR 0.9; PT Patient Result 9.9 SECS (10.5-12.0)
[2021-07-12 11:21] LABS: Albumin 4.2 G/DL (3.4-5.0); Bilirubin,Total 0.7 MG/DL (0.20-1.00); Calcium 11.1 MG/DL (8.5-10.1); Osmolality,Calculated 268.4 MOS/KG (273-304); Potassium 3.8 MMOL/L (3.5-5.1); Total Protein 7.8 G/DL (6.4-8.2)
[2021-07-12] MEDS ORDERED: ONDANSETRON 4 MG/2 ML VIAL IV PRN (12:32)
[2021-07-12] MEDS ORDERED: hydrALAZINE 20 MG/1 ML VIAL IV PRN (12:32)
[2021-07-12] MEDS ORDERED: GLUCAGON 1 MG VIAL IM PRN (12:32)
[2021-07-12] MEDS ORDERED: DOCUSATE SODIUM 100 MG CAPSULE PO PRN (12:32)
[2021-07-12] MEDS ORDERED: ACETAMINOPHEN 325 MG TABLET PO PRN (12:32)
[2021-07-12] MEDS ORDERED: DEXTROSE 10% 250 ML BAG IV PRN (12:57)
[2021-07-12] MEDS ORDERED: MEROPENEM 2,000 MG in SODIUM CHLORIDE 0.9% 100 ML IV SCH (13:00)
[2021-07-12] MEDS ORDERED: MEROPENEM 1,000 MG in SODIUM CHLORIDE 0.9% 100 ML IV SCH (13:30)
[2021-07-12] MEDS ORDERED: ALBUTEROL 2.5 MG/3 ML NEB RESP TX PRN (14:03)
[2021-07-12] MEDS: ALBUTEROL/IPRATROPIUM 3 ML NEB RESP TX SCH ×3 (14:25→23:05)
[2021-07-12] MEDS: methylPREDNISolone SOD SUC 40 MG/1 ML VIAL IV SCH ×2 (15:30→21:20)
[2021-07-12] MEDS: CEFEPIME 1,000 MG in SODIUM CHLORIDE 0.9% 100 ML IV SCH ×2 (15:45→21:12)
[2021-07-12] MEDS: BENZONATATE 100 MG CAPSULE PO SCH ×2 (16:37→21:18)
[2021-07-12] MEDS: PANTOPRAZOLE 40 MG TABLET PO SCH (16:39)
[2021-07-12] MEDS: oxyCODONE/ACETAMINOPHEN 5-325 MG TABLET PO PRN (18:02)
[2021-07-12] MEDS: INSULIN LISPRO 100 UNIT/ML SUBCUT SCH ×2 (18:28→21:21)
[2021-07-12 19:23] LABS: Mucus,Urine Occasional /LPF (Occasional); RBC,Urine 1 /HPF (0-4); Squamous Epithelial Cell,Urine Occasional /HPF (0-10)
[2021-07-12 19:24] LABS: Bilirubin,Urine Negative (Negative); Blood, Urine Trace mg/dL (Negative); Glucose,Urine (UA) >1000 mg/dL (Negative); Ketones,Urine Negative (Negative); Nitrite,Urine Negative (Negative); Protein,Urine Negative (Negative); Urine Appearance Clear (Clear); Urine Color Yellow (Yellow); Urine Specific Gravity 1.015 (1.001-1.035); Urine Urobilinogen 0.2 eU/dL (<2.0)
[2021-07-12 19:34] LABS: Barbiturates Screen,Urine Negative (Negative); Benzodiazepines Screen,Urine Negative (Negative); Cannabinoid Screen,Urine Negative (Negative); Opiate Screen,Urine Positive (Negative); Phencyclidine Screen,Urine Negative (Negative)
[2021-07-12] MEDS: valACYclovir 500 MG TABLET PO SCH (21:15)
[2021-07-12] MEDS: DULoxetine 30 MG CAPSULE PO SCH (21:15)
[2021-07-12] MEDS: hydroCHLOROthiazide 25 MG TABLET PO SCH (21:15)
[2021-07-12] MEDS: FERROUS SULFATE 325 MG TABLET PO SCH (21:15)
[2021-07-12] MEDS: DIVALPROEX 500 MG TABLET PO SCH (21:18)
[2021-07-12] MEDS: HYDROXYCHLOROQUINE 200 MG TABLET PO SCH (21:19)
[2021-07-12] MEDS: tiZANidine 4 MG TABLET PO PRN (21:19)
[2021-07-12] MEDS: clonazePAM 0.5 MG TABLET PO PRN (21:19)
[2021-07-12] MEDS: LATANOPROST 0.005% OPH SOLN 2.5 ML BOTTLE BOTH EYES SCH (21:19)
[2021-07-12] MEDS: AMITRIPTYLINE 25 MG TABLET PO SCH (21:19)
[2021-07-12] MEDS: GABAPENTIN 600 MG TABLET PO SCH (21:25)
[2021-07-12] MEDS: BREZTRI AEROSPHERE INH SCH (21:30)
[2021-07-13] MEDS: ALBUTEROL/IPRATROPIUM 3 ML NEB RESP TX SCH ×6 (02:00→23:59)
[2021-07-13] MEDS: CEFEPIME 1,000 MG in SODIUM CHLORIDE 0.9% 100 ML IV SCH ×4 (04:25→21:02)
[2021-07-13] MEDS: methylPREDNISolone SOD SUC 40 MG/1 ML VIAL IV SCH ×2 (05:13→16:39)
[2021-07-13] MEDS: oxyCODONE/ACETAMINOPHEN 5-325 MG TABLET PO PRN ×3 (05:17→21:03)
[2021-07-13 06:16] LABS: Basophils % 0.2 % (0.0-0.8); Hematocrit 38.8 VOL% (35.7-47.0); Immature Granulocytes % 1.5 %; Immature Granulocytes Absolute 0.19 #; Lymphocytes # 0.3 10*3/uL (1.4-4.0); Lymphocytes % 2.4 % (21.3-54.2); Mean Corpuscular HGB Conc 33.5 GM/DL (32-36); Mean Corpuscular Volume 99.2 FL (87-102); Mean Platelet Volume 9.9 FL (9.6-12.0); Monocytes # 0.3 10*3/uL (0.11-0.8); Neutrophils % 93.9 % (38.7-73.9); Platelet Count 212 T/CUMM (130-400); Red Blood Count 3.91 MC/CUMM (3.8-5.5); Red Cell Distribution Width 13.9 % (9.3-17.3); White Blood Count 12.6 T/CUMM (4-12)
[2021-07-13 06:27] LABS: Calcium 9.8 MG/DL (8.5-10.1); Osmolality,Calculated 287.7 MOS/KG (273-304); Potassium 3.5 MMOL/L (3.5-5.1)
[2021-07-13 06:44] LABS: Risk Ratio 2.24; Thyroid Stimulating Hormone 0.069 uIU/ml (0.358-3.74); VLDL Cholesterol 25.6 MG/DL
[2021-07-13 06:46] LABS: Anisocytosis 1+; Band Neutrophils 8 % (0-10); Lymphocytes 3 % (20-55); Macrocytosis Slight; Platelet Estimate Normal; Total Cells Counted 100
[2021-07-13] MEDS ORDERED: PANTOPRAZOLE 40 MG TABLET PO SCH (09:00)
[2021-07-13] MEDS ORDERED: FLUCONAZOLE 150 MG TABLET PO SCH (09:00)
[2021-07-13] MEDS: INSULIN LISPRO 100 UNIT/ML SUBCUT SCH ×4 (09:16→20:18)
[2021-07-13] MEDS: VANCOMYCIN INJ 1,750 MG in SODIUM CHLORIDE 0.9% 500 ML IV SCH (09:16)
[2021-07-13] MEDS: valACYclovir 500 MG TABLET PO SCH ×2 (09:43→21:05)
[2021-07-13] MEDS: amLODIPine 5 MG TABLET PO SCH (09:43)
[2021-07-13] MEDS: VITAMIN E 400 UNIT CAPSULE PO SCH (09:43)
[2021-07-13] MEDS: DULoxetine 30 MG CAPSULE PO SCH ×2 (09:43→21:04)
[2021-07-13] MEDS: MELOXICAM 7.5 MG TABLET PO SCH (09:43)
[2021-07-13] MEDS: FENOFIBRATE 145 MG TABLET PO SCH (09:43)
[2021-07-13] MEDS: DIVALPROEX 500 MG TABLET PO SCH ×2 (09:43→21:04)
[2021-07-13] MEDS: GABAPENTIN 600 MG TABLET PO SCH ×2 (09:43→21:03)
[2021-07-13] MEDS: BENZONATATE 100 MG CAPSULE PO SCH ×3 (09:44→21:05)
[2021-07-13] MEDS: ASCORBIC ACID 500 MG TABLET PO SCH (09:44)
[2021-07-13] MEDS: LOSARTAN 25 MG TABLET PO SCH (09:44)
[2021-07-13] MEDS: FERROUS SULFATE 325 MG TABLET PO SCH ×2 (09:45→21:05)
[2021-07-13] MEDS: hydroCHLOROthiazide 25 MG TABLET PO SCH ×2 (09:45→21:04)
[2021-07-13] MEDS: DILTIAZEM CD 120 MG CAPSULE PO SCH (09:45)
[2021-07-13] MEDS: BREZTRI AEROSPHERE INH SCH ×2 (09:45→21:05)
[2021-07-13] MEDS: CHOLECALCIFEROL 5,000 UNIT TABLET PO SCH (09:45)
[2021-07-13] MEDS: MONTELUKAST 10 MG TABLET PO SCH (09:45)
[2021-07-13] MEDS: HYDROXYCHLOROQUINE 200 MG TABLET PO SCH ×2 (09:45→21:04)
[2021-07-13] MEDS: PANTOPRAZOLE 40 MG TABLET PO SCH ×2 (09:45→16:39)
[2021-07-13] MEDS: ALBUTEROL 2 MG TABLET PO SCH (09:45)
[2021-07-13] MEDS: FLUCONAZOLE INJ 200 MG/100 ML PREMIX IV SCH (11:39)
[2021-07-13] MEDS: LATANOPROST 0.005% OPH SOLN 2.5 ML BOTTLE BOTH EYES SCH (21:02)
[2021-07-13] MEDS: AMITRIPTYLINE 25 MG TABLET PO SCH (21:05)
[2021-07-13] MEDS: tiZANidine 4 MG TABLET PO PRN (22:19)
[2021-07-14] MEDS: CEFEPIME 1,000 MG in SODIUM CHLORIDE 0.9% 100 ML IV SCH ×3 (02:25→18:02)
[2021-07-14] MEDS: methylPREDNISolone SOD SUC 40 MG/1 ML VIAL IV SCH ×3 (02:26→18:01)
[2021-07-14] MEDS: ALBUTEROL/IPRATROPIUM 3 ML NEB RESP TX SCH ×6 (02:37→23:45)
[2021-07-14] MEDS: VANCOMYCIN INJ 1,750 MG in SODIUM CHLORIDE 0.9% 500 ML IV SCH ×2 (03:02→21:48)
[2021-07-14] MEDS: oxyCODONE/ACETAMINOPHEN 5-325 MG TABLET PO PRN ×3 (04:38→20:10)
[2021-07-14 05:03] LABS: Basophils # 0.1 10*3/uL (0.0-0.2); Basophils % 0.3 % (0.0-0.8); Eosinophils % 0.2 % (0.00-10.9); Hematocrit 36.6 VOL% (35.7-47.0); Hemoglobin 11.9 GM/DL (12.0-16.0); Immature Granulocytes % 3.1 %; Immature Granulocytes Absolute 0.53 #; Lymphocytes # 0.6 10*3/uL (1.4-4.0); Lymphocytes % 3.5 % (21.3-54.2); Mean Corpuscular HGB Conc 32.5 GM/DL (32-36); Mean Corpuscular Volume 101.7 FL (87-102); Mean Platelet Volume 10.2 FL (9.6-12.0); Monocytes # 0.7 10*3/uL (0.11-0.8); Monocytes % 3.9 % (1.7-12.7); Platelet Count 217 T/CUMM (130-400); Red Cell Distribution Width 13.9 % (9.3-17.3); White Blood Count 17.3 T/CUMM (4-12)
[2021-07-14 05:16] LABS: Calcium 9.5 MG/DL (8.5-10.1); Potassium 3.9 MMOL/L (3.5-5.1)
[2021-07-14 05:19] LABS: INR 0.9; PT Patient Result 9.8 SECS (10.5-12.0); Partial Thromboplastin Time 20.1 SECS (23.8-32.1)
[2021-07-14 05:31] LABS: Lymphocytes 3 % (20-55); Platelet Estimate Adequate; Total Cells Counted 100
[2021-07-14] MEDS: INSULIN LISPRO 100 UNIT/ML SUBCUT SCH ×4 (07:27→20:10)
[2021-07-14] MEDS ORDERED: BENZONATATE 100 MG CAPSULE PO ONE (08:00)
[2021-07-14] MEDS ORDERED: diphenhydrAMINE 50 MG/1 ML VIAL IM ONE (08:00)
[2021-07-14] MEDS ORDERED: LIDOCAINE 2% 20 ML VIAL RESP TX ONE (08:30)
[2021-07-14] MEDS ORDERED: LIDOCAINE 2% VISCOUS 100 ML BOTTLE SWISH/SPIT ONE (08:30)
[2021-07-14] MEDS ORDERED: LIDOCAINE 1% 20 ML VIAL MISC INJ ONE (08:30)
[2021-07-14] MEDS ORDERED: MIDAZOLAM 2 MG/2 ML VIAL IV ONE (09:00)
[2021-07-14] MEDS: PANTOPRAZOLE 40 MG TABLET PO SCH ×2 (11:47→17:03)
[2021-07-14] MEDS: BREZTRI AEROSPHERE INH SCH ×2 (11:47→20:52)
[2021-07-14] MEDS: LOSARTAN 25 MG TABLET PO SCH (11:48)
[2021-07-14] MEDS: DILTIAZEM CD 120 MG CAPSULE PO SCH (11:48)
[2021-07-14] MEDS: DIVALPROEX 500 MG TABLET PO SCH ×2 (11:49→20:09)
[2021-07-14] MEDS: DULoxetine 30 MG CAPSULE PO SCH ×2 (11:49→20:09)
[2021-07-14] MEDS: FERROUS SULFATE 325 MG TABLET PO SCH ×2 (11:50→20:09)
[2021-07-14] MEDS: hydroCHLOROthiazide 25 MG TABLET PO SCH ×2 (11:51→20:10)
[2021-07-14] MEDS: MELOXICAM 7.5 MG TABLET PO SCH (11:52)
[2021-07-14] MEDS: GABAPENTIN 600 MG TABLET PO SCH ×2 (11:53→20:08)
[2021-07-14] MEDS: amLODIPine 5 MG TABLET PO SCH (11:54)
[2021-07-14] MEDS: HYDROXYCHLOROQUINE 200 MG TABLET PO SCH ×2 (11:54→20:09)
[2021-07-14] MEDS: ALBUTEROL 2 MG TABLET PO SCH (11:56)
[2021-07-14] MEDS: MONTELUKAST 10 MG TABLET PO SCH (11:57)
[2021-07-14] MEDS: FENOFIBRATE 145 MG TABLET PO SCH (11:58)
[2021-07-14] MEDS: valACYclovir 500 MG TABLET PO SCH ×2 (11:59→20:09)
[2021-07-14] MEDS: ASCORBIC ACID 500 MG TABLET PO SCH (11:59)
[2021-07-14] MEDS: VITAMIN E 400 UNIT CAPSULE PO SCH (12:00)
[2021-07-14] MEDS: CHOLECALCIFEROL 5,000 UNIT TABLET PO SCH (12:00)
[2021-07-14] MEDS: BENZONATATE 100 MG CAPSULE PO SCH ×3 (12:09→20:08)
[2021-07-14] MEDS: AZITHROMYCIN 250 MG TABLET PO SCH (12:38)
[2021-07-14] MEDS: FLUCONAZOLE INJ 200 MG/100 ML PREMIX IV SCH (12:39)
[2021-07-14] MEDS: AMITRIPTYLINE 25 MG TABLET PO SCH (20:09)
[2021-07-14] MEDS: tiZANidine 4 MG TABLET PO PRN (20:12)
[2021-07-14] MEDS: LATANOPROST 0.005% OPH SOLN 2.5 ML BOTTLE BOTH EYES SCH (20:52)
[2021-07-15] MEDS: tiZANidine 4 MG TABLET PO PRN (00:01)
[2021-07-15] MEDS: methylPREDNISolone SOD SUC 40 MG/1 ML VIAL IV SCH ×3 (00:03→16:34)
[2021-07-15] MEDS: CEFEPIME 1,000 MG in SODIUM CHLORIDE 0.9% 100 ML IV SCH ×4 (00:05→22:20)
[2021-07-15] MEDS: oxyCODONE/ACETAMINOPHEN 5-325 MG TABLET PO PRN ×4 (01:56→22:18)
[2021-07-15] MEDS: ALBUTEROL/IPRATROPIUM 3 ML NEB RESP TX SCH ×6 (02:34→23:36)
[2021-07-15 05:29] LABS: Basophils # 0.2 10*3/uL (0.0-0.2); Basophils % 0.7 % (0.0-0.8); Eosinophils % 0.2 % (0.00-10.9); Hematocrit 39.7 VOL% (35.7-47.0); Hemoglobin 12.7 GM/DL (12.0-16.0); Immature Granulocytes % 4.6 %; Immature Granulocytes Absolute 0.93 #; Lymphocytes # 0.8 10*3/uL (1.4-4.0); Lymphocytes % 4.1 % (21.3-54.2); Mean Corpuscular Volume 102.1 FL (87-102); Mean Platelet Volume 9.9 FL (9.6-12.0); Monocytes # 1.1 10*3/uL (0.11-0.8); Monocytes % 5.2 % (1.7-12.7); Neutrophils % 85.2 % (38.7-73.9); Platelet Count 256 T/CUMM (130-400); Red Blood Count 3.89 MC/CUMM (3.8-5.5); Red Cell Distribution Width 14.3 % (9.3-17.3); White Blood Count 20.4 T/CUMM (4-12)
[2021-07-15 05:52] LABS: Calcium 9.8 MG/DL (8.5-10.1); Osmolality,Calculated 294.8 MOS/KG (273-304); Potassium 4.4 MMOL/L (3.5-5.1)
[2021-07-15 08:06] LABS: Anisocytosis Slight; Lymphocytes 3 % (20-55); Platelet Estimate Normal; Polychromasia Slight; Total Cells Counted 100
[2021-07-15] MEDS: INSULIN LISPRO 100 UNIT/ML SUBCUT SCH ×4 (09:11→21:03)
[2021-07-15] MEDS: BREZTRI AEROSPHERE INH SCH ×2 (09:13→21:07)
[2021-07-15] MEDS: PANTOPRAZOLE 40 MG TABLET PO SCH ×2 (09:13→16:33)
[2021-07-15] MEDS: DILTIAZEM CD 120 MG CAPSULE PO SCH (09:14)
[2021-07-15] MEDS: DULoxetine 30 MG CAPSULE PO SCH ×2 (09:14→21:00)
[2021-07-15] MEDS: LOSARTAN 25 MG TABLET PO SCH (09:14)
[2021-07-15] MEDS: DIVALPROEX 500 MG TABLET PO SCH ×2 (09:15→21:00)
[2021-07-15] MEDS: FERROUS SULFATE 325 MG TABLET PO SCH ×2 (09:15→21:00)
[2021-07-15] MEDS: hydroCHLOROthiazide 25 MG TABLET PO SCH ×2 (09:16→20:59)
[2021-07-15] MEDS: MELOXICAM 7.5 MG TABLET PO SCH (09:16)
[2021-07-15] MEDS: GABAPENTIN 600 MG TABLET PO SCH ×2 (09:17→21:01)
[2021-07-15] MEDS: HYDROXYCHLOROQUINE 200 MG TABLET PO SCH ×2 (09:18→21:02)
[2021-07-15] MEDS: amLODIPine 5 MG TABLET PO SCH (09:18)
[2021-07-15] MEDS: ALBUTEROL 2 MG TABLET PO SCH (09:19)
[2021-07-15] MEDS: MONTELUKAST 10 MG TABLET PO SCH (09:19)
[2021-07-15] MEDS: FENOFIBRATE 145 MG TABLET PO SCH (09:20)
[2021-07-15] MEDS: valACYclovir 500 MG TABLET PO SCH ×2 (09:20→22:17)
[2021-07-15] MEDS: VITAMIN E 400 UNIT CAPSULE PO SCH (09:20)
[2021-07-15] MEDS: ASCORBIC ACID 500 MG TABLET PO SCH (09:20)
[2021-07-15] MEDS: BENZONATATE 100 MG CAPSULE PO SCH ×3 (09:20→21:02)
[2021-07-15] MEDS: CHOLECALCIFEROL 5,000 UNIT TABLET PO SCH (09:21)
[2021-07-15] MEDS: FLUCONAZOLE INJ 200 MG/100 ML PREMIX IV SCH (12:34)
[2021-07-15] MEDS: SODIUM CHLORIDE 0.9% 1,000 ML IV SCH (13:50)
[2021-07-15] MEDS: VANCOMYCIN INJ 1,750 MG in SODIUM CHLORIDE 0.9% 500 ML IV SCH (15:12)
[2021-07-15] MEDS: AMITRIPTYLINE 25 MG TABLET PO SCH (21:02)
[2021-07-15] MEDS: LATANOPROST 0.005% OPH SOLN 2.5 ML BOTTLE BOTH EYES SCH (22:19)
[2021-07-16] MEDS: methylPREDNISolone SOD SUC 40 MG/1 ML VIAL IV SCH ×3 (01:10→18:25)
[2021-07-16] MEDS: ALBUTEROL/IPRATROPIUM 3 ML NEB RESP TX SCH ×6 (03:50→23:45)
[2021-07-16] MEDS: CEFEPIME 1,000 MG in SODIUM CHLORIDE 0.9% 100 ML IV SCH ×3 (05:30→21:17)
[2021-07-16] MEDS: SODIUM CHLORIDE 0.9% 1,000 ML IV SCH ×2 (06:27→21:18)
[2021-07-16] MEDS: INSULIN LISPRO 100 UNIT/ML SUBCUT SCH ×4 (08:54→21:15)
[2021-07-16] MEDS: PANTOPRAZOLE 40 MG TABLET PO SCH ×2 (08:55→16:33)
[2021-07-16] MEDS: DILTIAZEM CD 120 MG CAPSULE PO SCH (08:56)
[2021-07-16] MEDS: valACYclovir 500 MG TABLET PO SCH ×2 (08:57→21:15)
[2021-07-16] MEDS: DULoxetine 30 MG CAPSULE PO SCH ×2 (08:57→21:16)
[2021-07-16] MEDS: LOSARTAN 25 MG TABLET PO SCH (08:57)
[2021-07-16] MEDS: HYDROXYCHLOROQUINE 200 MG TABLET PO SCH ×2 (08:58→21:17)
[2021-07-16] MEDS: FENOFIBRATE 145 MG TABLET PO SCH (08:58)
[2021-07-16] MEDS: DIVALPROEX 500 MG TABLET PO SCH ×2 (08:58→21:17)
[2021-07-16] MEDS: MONTELUKAST 10 MG TABLET PO SCH (08:59)
[2021-07-16] MEDS: ASCORBIC ACID 500 MG TABLET PO SCH (08:59)
[2021-07-16] MEDS: BENZONATATE 100 MG CAPSULE PO SCH ×3 (08:59→21:16)
[2021-07-16] MEDS: VITAMIN E 400 UNIT CAPSULE PO SCH (08:59)
[2021-07-16] MEDS: GABAPENTIN 600 MG TABLET PO SCH ×2 (09:00→21:15)
[2021-07-16] MEDS: amLODIPine 5 MG TABLET PO SCH (09:01)
[2021-07-16] MEDS: MELOXICAM 7.5 MG TABLET PO SCH (09:01)
[2021-07-16] MEDS: ALBUTEROL 2 MG TABLET PO SCH (09:02)
[2021-07-16] MEDS: FERROUS SULFATE 325 MG TABLET PO SCH ×2 (09:02→21:15)
[2021-07-16] MEDS: hydroCHLOROthiazide 25 MG TABLET PO SCH ×2 (09:02→21:17)
[2021-07-16] MEDS: CHOLECALCIFEROL 5,000 UNIT TABLET PO SCH (09:02)
[2021-07-16] MEDS: BREZTRI AEROSPHERE INH SCH ×2 (09:04→21:18)
[2021-07-16] MEDS: oxyCODONE/ACETAMINOPHEN 5-325 MG TABLET PO PRN ×3 (09:05→21:16)
[2021-07-16] MEDS: VANCOMYCIN INJ 1,750 MG in SODIUM CHLORIDE 0.9% 500 ML IV SCH (10:11)
[2021-07-16] MEDS: FLUCONAZOLE INJ 200 MG/100 ML PREMIX IV SCH (13:35)
[2021-07-16] MEDS: AMITRIPTYLINE 25 MG TABLET PO SCH (21:16)
[2021-07-16] MEDS: tiZANidine 4 MG TABLET PO PRN (21:16)
[2021-07-16] MEDS: LATANOPROST 0.005% OPH SOLN 2.5 ML BOTTLE BOTH EYES SCH (21:18)
[2021-07-17] MEDS: methylPREDNISolone SOD SUC 40 MG/1 ML VIAL IV SCH ×3 (00:47→16:49)
[2021-07-17] MEDS: ALBUTEROL/IPRATROPIUM 3 ML NEB RESP TX SCH ×6 (03:26→23:00)
[2021-07-17] MEDS: VANCOMYCIN INJ 1,750 MG in SODIUM CHLORIDE 0.9% 500 ML IV SCH ×2 (05:16→22:39)
[2021-07-17] MEDS: oxyCODONE/ACETAMINOPHEN 5-325 MG TABLET PO PRN ×3 (07:18→21:24)
[2021-07-17] MEDS: INSULIN LISPRO 100 UNIT/ML SUBCUT SCH ×4 (07:37→21:26)
[2021-07-17 08:31] LABS: M. Tuberculosis PCR Result Negative (Negative)
[2021-07-17] MEDS: hydroCHLOROthiazide 25 MG TABLET PO SCH ×2 (09:11→21:24)
[2021-07-17] MEDS: DULoxetine 30 MG CAPSULE PO SCH ×2 (09:12→21:23)
[2021-07-17] MEDS: valACYclovir 500 MG TABLET PO SCH ×2 (09:12→21:24)
[2021-07-17] MEDS: DIVALPROEX 500 MG TABLET PO SCH ×2 (09:13→21:25)
[2021-07-17] MEDS: FERROUS SULFATE 325 MG TABLET PO SCH ×2 (09:13→21:24)
[2021-07-17] MEDS: MELOXICAM 7.5 MG TABLET PO SCH (09:13)
[2021-07-17] MEDS: ASCORBIC ACID 500 MG TABLET PO SCH (09:14)
[2021-07-17] MEDS: DILTIAZEM CD 120 MG CAPSULE PO SCH (09:14)
[2021-07-17] MEDS: VITAMIN E 400 UNIT CAPSULE PO SCH (09:15)
[2021-07-17] MEDS: AZITHROMYCIN 250 MG TABLET PO SCH (09:15)
[2021-07-17] MEDS: LOSARTAN 25 MG TABLET PO SCH (09:16)
[2021-07-17] MEDS: GABAPENTIN 600 MG TABLET PO SCH ×2 (09:16→21:25)
[2021-07-17] MEDS: HYDROXYCHLOROQUINE 200 MG TABLET PO SCH ×2 (09:16→21:25)
[2021-07-17] MEDS: MONTELUKAST 10 MG TABLET PO SCH (09:17)
[2021-07-17] MEDS: BENZONATATE 100 MG CAPSULE PO SCH ×3 (09:17→21:23)
[2021-07-17] MEDS: amLODIPine 5 MG TABLET PO SCH (09:17)
[2021-07-17] MEDS: FENOFIBRATE 145 MG TABLET PO SCH (09:18)
[2021-07-17] MEDS: BREZTRI AEROSPHERE INH SCH ×2 (09:19→21:26)
[2021-07-17] MEDS: CEFEPIME 1,000 MG in SODIUM CHLORIDE 0.9% 100 ML IV SCH ×2 (10:07→16:48)
[2021-07-17] MEDS: PANTOPRAZOLE 40 MG TABLET PO SCH ×2 (10:08→16:46)
[2021-07-17] MEDS: CHOLECALCIFEROL 5,000 UNIT TABLET PO SCH (10:08)
[2021-07-17 10:51] LABS: Hematocrit 40.5 VOL% (35.7-47.0); Hemoglobin 13.2 GM/DL (12.0-16.0); Immature Granulocytes % 7.8 %; Immature Granulocytes Absolute 2.12 #; Lymphocytes # 1.3 10*3/uL (1.4-4.0); Lymphocytes % 4.6 % (21.3-54.2); Mean Corpuscular HGB Conc 32.6 GM/DL (32-36); Mean Corpuscular Volume 100.5 FL (87-102); Monocytes # 1.8 10*3/uL (0.11-0.8); Monocytes % 6.6 % (1.7-12.7); Platelet Count 259 T/CUMM (130-400); Red Blood Count 4.03 MC/CUMM (3.8-5.5); Red Cell Distribution Width 14.5 % (9.3-17.3); White Blood Count 27.2 T/CUMM (4-12)
[2021-07-17 11:12] LABS: Albumin 2.6 G/DL (3.4-5.0); Bilirubin,Total 0.4 MG/DL (0.20-1.00); Calcium 9.7 MG/DL (8.5-10.1); Osmolality,Calculated 295.8 MOS/KG (273-304); Potassium 4.8 MMOL/L (3.5-5.1); Total Protein 5.8 G/DL (6.4-8.2)
[2021-07-17] MEDS: ALBUTEROL 2 MG TABLET PO SCH (11:29)
[2021-07-17 12:29] LABS: Lymphocytes 8 % (20-55); Total Cells Counted 100
[2021-07-17 12:30] LABS: Atypical Lymphocytes Few; Platelet Estimate Normal; Spherocytes Slight
[2021-07-17] MEDS: FLUCONAZOLE INJ 200 MG/100 ML PREMIX IV SCH (12:48)
[2021-07-17] MEDS: ALBUTEROL 0.4 MG/ML 30 ML/BOTTLE PO SCH ×2 (14:44→22:40)
[2021-07-17] MEDS: tiZANidine 4 MG TABLET PO PRN (21:24)
[2021-07-17] MEDS: AMITRIPTYLINE 25 MG TABLET PO SCH (21:25)
[2021-07-17] MEDS: SODIUM CHLORIDE 0.9% 1,000 ML IV SCH (21:26)
[2021-07-17] MEDS: LATANOPROST 0.005% OPH SOLN 2.5 ML BOTTLE BOTH EYES SCH (21:27)
[2021-07-18] MEDS: methylPREDNISolone SOD SUC 40 MG/1 ML VIAL IV SCH ×3 (01:12→17:48)
[2021-07-18] MEDS: CEFEPIME 1,000 MG in SODIUM CHLORIDE 0.9% 100 ML IV SCH ×3 (01:12→15:57)
[2021-07-18] MEDS: ALBUTEROL/IPRATROPIUM 3 ML NEB RESP TX SCH ×6 (03:54→23:30)
[2021-07-18] MEDS: oxyCODONE/ACETAMINOPHEN 5-325 MG TABLET PO PRN ×4 (04:00→21:03)
[2021-07-18 05:33] LABS: Hematocrit 41.2 VOL% (35.7-47.0); Hemoglobin 13.1 GM/DL (12.0-16.0); Immature Granulocytes % 8.7 %; Immature Granulocytes Absolute 2.25 #; Lymphocytes # 1.6 10*3/uL (1.4-4.0); Mean Corpuscular HGB Conc 31.8 GM/DL (32-36); Mean Platelet Volume 9.5 FL (9.6-12.0); Monocytes # 0.8 10*3/uL (0.11-0.8); Monocytes % 3.1 % (1.7-12.7); NRBC # 0.02 10*3/uL; Neutrophils % 82.2 % (38.7-73.9); Platelet Count 286 T/CUMM (130-400); Red Blood Count 4.04 MC/CUMM (3.8-5.5); Red Cell Distribution Width 14.4 % (9.3-17.3); White Blood Count 25.8 T/CUMM (4-12)
[2021-07-18 05:50] LABS: Osmolality,Calculated 300.5 MOS/KG (273-304); Potassium 4.8 MMOL/L (3.5-5.1)
[2021-07-18 05:56] LABS: Alanine Aminotransferase 33 U/L (13-56); Albumin 2.6 G/DL (3.4-5.0); Alkaline Phosphatase 37 U/L (45-117); Aspartate Amino Transferase 10 U/L (0-37); Bilirubin,Total < 0.39 MG/DL (0.20-1.00); Blood Urea Nitrogen 55 MG/DL (7-18); Calcium 8.9 MG/DL (8.5-10.1); Carbon Dioxide 22 MMOL/L (21-32); Chloride 109 MMOL/L (98-107); Estimated Glom Filtration Rate 55 ML/MIN; Glucose 267 MG/DL (74-106); Osmolality,Calculated 302.4 MOS/KG (273-304); Potassium 4.8 MMOL/L (3.5-5.1); Sodium 140 MMOL/L (136-145); Total Protein 5.4 G/DL (6.4-8.2)
[2021-07-18 06:05] LABS: Lymphocytes 9 % (20-55); Total Cells Counted 100
[2021-07-18 06:06] LABS: Macrocytosis 1+; Platelet Estimate Adequate
[2021-07-18] MEDS: PANTOPRAZOLE 40 MG TABLET PO SCH ×2 (08:27→17:48)
[2021-07-18] MEDS: INSULIN LISPRO 100 UNIT/ML SUBCUT SCH ×4 (08:27→21:08)
[2021-07-18] MEDS: FERROUS SULFATE 325 MG TABLET PO SCH ×2 (09:43→20:58)
[2021-07-18] MEDS: CHOLECALCIFEROL 5,000 UNIT TABLET PO SCH (09:43)
[2021-07-18] MEDS: DULoxetine 30 MG CAPSULE PO SCH ×2 (09:43→20:57)
[2021-07-18] MEDS: MELOXICAM 7.5 MG TABLET PO SCH (09:44)
[2021-07-18] MEDS: hydroCHLOROthiazide 25 MG TABLET PO SCH ×2 (09:44→20:58)
[2021-07-18] MEDS: BENZONATATE 100 MG CAPSULE PO SCH ×3 (09:45→20:56)
[2021-07-18] MEDS: FENOFIBRATE 145 MG TABLET PO SCH (09:45)
[2021-07-18] MEDS: valACYclovir 500 MG TABLET PO SCH ×2 (09:45→20:57)
[2021-07-18] MEDS: VITAMIN E 400 UNIT CAPSULE PO SCH (09:45)
[2021-07-18] MEDS: DIVALPROEX 500 MG TABLET PO SCH ×2 (09:46→20:58)
[2021-07-18] MEDS: MONTELUKAST 10 MG TABLET PO SCH (09:49)
[2021-07-18] MEDS: ASCORBIC ACID 500 MG TABLET PO SCH (09:49)
[2021-07-18] MEDS: GABAPENTIN 600 MG TABLET PO SCH ×2 (09:50→20:57)
[2021-07-18] MEDS: HYDROXYCHLOROQUINE 200 MG TABLET PO SCH ×2 (09:50→20:58)
[2021-07-18] MEDS: LOSARTAN 25 MG TABLET PO SCH (09:51)
[2021-07-18] MEDS: amLODIPine 5 MG TABLET PO SCH (09:51)
[2021-07-18] MEDS: DILTIAZEM CD 120 MG CAPSULE PO SCH (09:51)
[2021-07-18] MEDS: ALBUTEROL 0.4 MG/ML 30 ML/BOTTLE PO SCH ×3 (09:53→20:58)
[2021-07-18] MEDS: BREZTRI AEROSPHERE INH SCH ×2 (09:53→21:05)
[2021-07-18] MEDS: FLUCONAZOLE INJ 200 MG/100 ML PREMIX IV SCH (12:07)
[2021-07-18 17:41] LABS: Cyclic Citrull Peptide Interp Negative
[2021-07-18] MEDS: VANCOMYCIN INJ 1,750 MG in SODIUM CHLORIDE 0.9% 500 ML IV SCH (17:49)
[2021-07-18] MEDS: SODIUM CHLORIDE 0.9% 1,000 ML IV SCH ×2 (19:04→22:28)
[2021-07-18] MEDS: clonazePAM 0.5 MG TABLET PO PRN (20:56)
[2021-07-18] MEDS: AMITRIPTYLINE 25 MG TABLET PO SCH (20:57)
[2021-07-18] MEDS: tiZANidine 4 MG TABLET PO PRN (20:58)
[2021-07-18] MEDS: LATANOPROST 0.005% OPH SOLN 2.5 ML BOTTLE BOTH EYES SCH (21:10)
[2021-07-19] MEDS: CEFEPIME 1,000 MG in SODIUM CHLORIDE 0.9% 100 ML IV SCH ×4 (00:14→23:08)
[2021-07-19] MEDS: methylPREDNISolone SOD SUC 40 MG/1 ML VIAL IV SCH ×2 (00:15→09:55)
[2021-07-19] MEDS: ALBUTEROL/IPRATROPIUM 3 ML NEB RESP TX SCH ×6 (03:35→23:28)
[2021-07-19] MEDS: oxyCODONE/ACETAMINOPHEN 5-325 MG TABLET PO PRN ×4 (04:43→23:03)
[2021-07-19 06:18] LABS: Hematocrit 42.2 VOL% (35.7-47.0); Immature Granulocytes Absolute 1.91 #; Lymphocytes # 0.9 10*3/uL (1.4-4.0); Lymphocytes % 3.7 % (21.3-54.2); Mean Corpuscular HGB Conc 30.8 GM/DL (32-36); Mean Corpuscular Volume 107.4 FL (87-102); Mean Platelet Volume 9.6 FL (9.6-12.0); Monocytes % 4.1 % (1.7-12.7); Neutrophils % 84.2 % (38.7-73.9); Platelet Count 233 T/CUMM (130-400); Red Blood Count 3.93 MC/CUMM (3.8-5.5); Red Cell Distribution Width 14.1 % (9.3-17.3); White Blood Count 23.9 T/CUMM (4-12)
[2021-07-19 06:36] LABS: Calcium 8.8 MG/DL (8.5-10.1); Osmolality,Calculated 302.7 MOS/KG (273-304); Potassium 5.4 MMOL/L (3.5-5.1)
[2021-07-19 06:37] LABS: Lymphocytes 11 % (20-55); Total Cells Counted 100
[2021-07-19 06:38] LABS: Platelet Estimate Normal
[2021-07-19] MEDS: MELOXICAM 7.5 MG TABLET PO SCH (09:53)
[2021-07-19] MEDS: hydroCHLOROthiazide 25 MG TABLET PO SCH ×2 (09:53→21:16)
[2021-07-19] MEDS: DIVALPROEX 500 MG TABLET PO SCH ×2 (09:54→21:17)
[2021-07-19] MEDS: DULoxetine 30 MG CAPSULE PO SCH ×2 (09:54→21:16)
[2021-07-19] MEDS: PANTOPRAZOLE 40 MG TABLET PO SCH ×2 (09:55→16:50)
[2021-07-19] MEDS: BENZONATATE 100 MG CAPSULE PO SCH ×3 (09:55→21:16)
[2021-07-19] MEDS: INSULIN LISPRO 100 UNIT/ML SUBCUT SCH ×4 (09:55→21:22)
[2021-07-19] MEDS: FENOFIBRATE 145 MG TABLET PO SCH (09:56)
[2021-07-19] MEDS: GABAPENTIN 600 MG TABLET PO SCH ×2 (09:56→21:17)
[2021-07-19] MEDS: AZITHROMYCIN 250 MG TABLET PO SCH (09:56)
[2021-07-19] MEDS: ASCORBIC ACID 500 MG TABLET PO SCH (09:56)
[2021-07-19] MEDS: amLODIPine 5 MG TABLET PO SCH (09:56)
[2021-07-19] MEDS: FERROUS SULFATE 325 MG TABLET PO SCH ×2 (09:57→21:18)
[2021-07-19] MEDS: VITAMIN E 400 UNIT CAPSULE PO SCH (09:57)
[2021-07-19] MEDS: HYDROXYCHLOROQUINE 200 MG TABLET PO SCH ×2 (09:57→21:18)
[2021-07-19] MEDS: valACYclovir 500 MG TABLET PO SCH ×2 (09:57→21:17)
[2021-07-19] MEDS: DILTIAZEM CD 120 MG CAPSULE PO SCH (09:57)
[2021-07-19] MEDS: CHOLECALCIFEROL 5,000 UNIT TABLET PO SCH (09:57)
[2021-07-19] MEDS: LOSARTAN 25 MG TABLET PO SCH (09:58)
[2021-07-19] MEDS: MONTELUKAST 10 MG TABLET PO SCH (09:58)
[2021-07-19] MEDS: ALBUTEROL 0.4 MG/ML 30 ML/BOTTLE PO SCH ×3 (09:59→23:05)
[2021-07-19] MEDS: VANCOMYCIN INJ 1,750 MG in SODIUM CHLORIDE 0.9% 500 ML IV SCH (12:00)
[2021-07-19] MEDS: FLUCONAZOLE INJ 200 MG/100 ML PREMIX IV SCH (14:00)
[2021-07-19] MEDS: predniSONE 10 MG TABLET PO SCH (21:17)
[2021-07-19] MEDS: AMITRIPTYLINE 25 MG TABLET PO SCH (21:18)
[2021-07-19] MEDS: clonazePAM 0.5 MG TABLET PO PRN (21:18)
[2021-07-19] MEDS: LATANOPROST 0.005% OPH SOLN 2.5 ML BOTTLE BOTH EYES SCH (21:23)
[2021-07-19] MEDS: BREZTRI AEROSPHERE INH SCH ×2 (21:34→22:22)
[2021-07-20] MEDS: ALBUTEROL/IPRATROPIUM 3 ML NEB RESP TX SCH ×4 (03:35→15:33)
[2021-07-20 09:38] LABS: Calcium 9.1 MG/DL (8.5-10.1); Osmolality,Calculated 293.4 MOS/KG (273-304); Potassium 5.5 MMOL/L (3.5-5.1)
[2021-07-20] MEDS ORDERED: oxyCODONE/ACETAMINOPHEN 5-325 MG TABLET PO PRN (10:10)
[2021-07-20] MEDS: FERROUS SULFATE 325 MG TABLET PO SCH (10:30)
[2021-07-20] MEDS: amLODIPine 5 MG TABLET PO SCH (10:30)
[2021-07-20] MEDS: GABAPENTIN 600 MG TABLET PO SCH (10:30)
[2021-07-20] MEDS: BREZTRI AEROSPHERE INH SCH (10:30)
[2021-07-20] MEDS: DULoxetine 30 MG CAPSULE PO SCH (10:31)
[2021-07-20] MEDS: PANTOPRAZOLE 40 MG TABLET PO SCH (10:31)
[2021-07-20] MEDS: CEFEPIME 1,000 MG in SODIUM CHLORIDE 0.9% 100 ML IV SCH (10:31)
[2021-07-20] MEDS: MELOXICAM 7.5 MG TABLET PO SCH (10:31)
[2021-07-20] MEDS: valACYclovir 500 MG TABLET PO SCH (10:31)
[2021-07-20] MEDS: hydroCHLOROthiazide 25 MG TABLET PO SCH (10:31)
[2021-07-20] MEDS: VITAMIN E 400 UNIT CAPSULE PO SCH (10:31)
[2021-07-20] MEDS: DIVALPROEX 500 MG TABLET PO SCH (10:32)
[2021-07-20] MEDS: ASCORBIC ACID 500 MG TABLET PO SCH (10:32)
[2021-07-20] MEDS: MONTELUKAST 10 MG TABLET PO SCH (10:32)
[2021-07-20] MEDS: BENZONATATE 100 MG CAPSULE PO SCH (10:32)
[2021-07-20] MEDS: FENOFIBRATE 145 MG TABLET PO SCH (10:32)
[2021-07-20] MEDS: LOSARTAN 25 MG TABLET PO SCH (10:32)
[2021-07-20] MEDS: DILTIAZEM CD 120 MG CAPSULE PO SCH (10:33)
[2021-07-20] MEDS: CHOLECALCIFEROL 5,000 UNIT TABLET PO SCH (10:34)
[2021-07-20] MEDS: predniSONE 10 MG TABLET PO SCH (10:34)
[2021-07-20] MEDS: HYDROXYCHLOROQUINE 200 MG TABLET PO SCH (10:34)
[2021-07-20] MEDS: ALBUTEROL 0.4 MG/ML 30 ML/BOTTLE PO SCH (10:35)
[2021-07-20] MEDS ORDERED: SODIUM POLYSTYRENE SULFATE 15 GM/60 ML BOTTLE PO STA (10:57)
[2021-07-20 11:43] LABS: Eosinophils # 0.1 10*3/uL (0.0-0.87); Eosinophils % 0.2 % (0.00-10.9); Hemoglobin 13.5 GM/DL (12.0-16.0); Immature Granulocytes % 5.5 %; Immature Granulocytes Absolute 1.68 #; Lymphocytes # 3.5 10*3/uL (1.4-4.0); Lymphocytes % 11.5 % (21.3-54.2); Mean Corpuscular HGB Conc 32.9 GM/DL (32-36); Mean Corpuscular Volume 101.2 FL (87-102); Mean Platelet Volume 9.2 FL (9.6-12.0); Monocytes # 2.2 10*3/uL (0.11-0.8); Monocytes % 7.2 % (1.7-12.7); Neutrophils % 75.6 % (38.7-73.9); Platelet Count 253 T/CUMM (130-400); Red Blood Count 4.05 MC/CUMM (3.8-5.5); Red Cell Distribution Width 14.4 % (9.3-17.3); White Blood Count 30.7 T/CUMM (4-12)
[2021-07-20 12:22] VITALS: BP 121/69
[2021-07-20] MEDS: INSULIN LISPRO 100 UNIT/ML SUBCUT SCH ×2 (12:22→12:23)
[2021-07-20] MEDS: FLUCONAZOLE INJ 200 MG/100 ML PREMIX IV SCH (12:24)
[2021-07-20 12:25] LABS: Lymphocytes 15 % (20-55); Myelocytes 2 %; Platelet Estimate Adequate; Total Cells Counted 100
[2021-07-20] MEDS ORDERED: glyBURIDE/METFORMIN 2.5-500 MG TABLET PO SCH (17:00)
[2021-07-21 14:02] LABS: Antinuclear Ab, S 0.2 U
== END 2021-07-20 15:34 | disposition home or self-care (01) | DRG 177 ==
LOC: N.ED 10:03 → SUATTDRO 12:32 → N.EDINP 12:32 → N.5E 13:33
PROVIDERS: ADMIT Internal Medicine; ATTEND Internal Medicine